=== PATIENT | female | born 1975 | race African-American/Black ===

== ENCOUNTER 2020-12-14 00:04 | Emergency (ER) | payer SELFPAY ==
--- OUTSIDE RECORDS SUMMARY | 2020-12-14 00:08 | XMS REPORT | Continuity of Care Document ---
:1975 Author Organization [facility] t Address [address] [place] [address] Care Team Providers Name Role Phone Unavailable Unavailable Unavailable Problems This patient has no known problems. Allergies, Adverse Reactions, Alerts This patient has no known allergies or adverse reactions. Medications This patient has no known medications. Procedures This patient has no known procedures. Results This patient has no known results.
[2020-12-14 00:53] LABS: Urine Blood 1+ (Negative); Urine Glucose Negative (Negative); Urine Protein 3+ (Negative); Urine Specific Gravity >=1.030 (1.005-1.030)
[2020-12-14 01:31] LABS: Absolute Lymphocytes (CBC) 1.2 K/uL (0.7-4.9); Basophils % 0.3 % (0-1.3); Hematocrit 36.4 % (36.0-45.0); Lymphocytes % 7.8 % (15.3-44.8); MPV 8.8 fL (7.6-11.3)
[2020-12-14] MEDS ORDERED: NA CHLORIDE 0.9% 1,000 ML ONE (01:54)
[2020-12-14] MEDS ORDERED: ONDANSETRON 4 MG/2 ML VIAL ONE (01:54)
[2020-12-14] MEDS ORDERED: FAMOTIDINE 20 MG/2 ML VIAL IV ONE (01:54)
[2020-12-14] MEDS ORDERED: MORPHINE 4 MG/ML SYR ONE (01:54)
[2020-12-14 02:22] LABS: ALT/SGPT 20 U/L (12-78); AST/SGOT 17 U/L (15-37); Albumin 3.9 g/dL (3.4-5.0); Alkaline Phosphatase 74 U/L (45-117); BUN Blood Urea Nitrogen 9 mg/dL (7-18); Bicarbonate 22 mmol/L (21-32); Bilirubin Direct 0.1 mg/dL (0-0.2); Bilirubin Total 0.4 mg/dL (0.2-1.0); Glucose Level 151 mg/dL (74-106); Lipase 19 U/L (73-393); Potassium 3.4 mmol/L (3.5-5.1); Protein, Total 8.5 g/dL (6.4-8.2); Sodium Level 137 mmol/L (136-145)
[2020-12-14 03:22] LABS: Urine Specific Gravity/Preg >1.030 (1.005-1.030)
[2020-12-14] MEDS ORDERED: PROMETHAZINE INJ 25 MG/ML AMP ONE (03:41)
[2020-12-14] MEDS ORDERED: D5 0.45 NS 1,000 ML IV ONE (03:54)
--- NOTE | 2020-12-14 04:33 | EDPHYS ---
Physician Documentation [facility] Name: Angel Ragsdale Age: 45 yrs Sex: Female : 1975 Arrival Date: 12/14/2020 Time: 00:15 Bed 13 Private MD: ED Physician Zackery Pagan HPI: 12/14 03:23 This 45 yrs old Black Female presents to ER via EMS with complaints of Vomiting. mh7 03:23 The patient presents to the emergency department with nausea, that is moderate, mh7 vomiting, that is intermittent, described as clear fluid, abdominal pain, of the epigastric area, described as intermittent, vague,\E\ waxing and waning, and does not radiate. 03:24 Onset: The symptoms/episode began/occurred yesterday. Possible causes: . The mh7 symptoms are aggravated by nothing. The symptoms are alleviated by nothing. Associated signs and symptoms: Pertinent negatives: anorexia, belching, constipation, diarrhea, dysuria, fever, flatulence, GI bleeding, hematuria, vaginal discharge. Severity of symptoms: At their worst the symptoms were moderate yesterday, in the emergency department the symptoms are unchanged. 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 - Social history:: Smoking status: unknown. ROS: 03:24 Constitutional: Negative for fever, chills, and weight loss, Eyes: Negative for injury, mh7 pain, redness, and discharge, ENT: Negative for injury, pain, and discharge, Neck: Negative for injury, pain, and swelling, Cardiovascular: Negative for chest pain, palpitations, and edema, Respiratory: Negative for shortness of breath, cough, wheezing, and pleuritic chest pain, Back: Negative for injury and pain, : Negative for injury, bleeding, discharge, and swelling, MS/Extremity: Negative for injury and deformity, Skin: Negative for injury, rash, and discoloration, Neuro: Negative for headache, weakness, numbness, tingling, and seizure, Psych: Negative for depression, anxiety, suicide ideation, homicidal ideation, and hallucinations, Allergy/Immunology: Negative for hives, rash, and allergies, Endocrine: Negative for neck swelling, polydipsia, polyuria, polyphagia, and marked weight changes, Hematologic/Lymphatic: Negative for swollen nodes, abnormal bleeding, and unusual bruising. Exam: 03:24 Constitutional: This is a well developed, well nourished patient who is awake, alert, mh7 and in no acute distress. Head/Face: Normocephalic, atraumatic. Eyes: Pupils equal round and reactive to light, extra-ocular motions intact. Lids and lashes normal. Conjunctiva and sclera are non-icteric and not injected. Cornea within normal limits. Periorbital areas with no swelling, redness, or edema. Neck: Trachea midline, no thyromegaly or masses palpated, and no cervical lymphadenopathy. Supple, full range of motion without nuchal rigidity, or vertebral point tenderness. No Meningismus. Chest/axilla: Normal chest wall appearance and motion. Nontender with no deformity. No lesions are appreciated. Cardiovascular: Regular rate and rhythm with a normal S1 and S2. No gallops, murmurs, or rubs. Normal PMI, no JVD. No pulse deficits. Respiratory: Lungs have equal breath sounds bilaterally, clear to auscultation and percussion. No rales, rhonchi or wheezes noted. No increased work of breathing, no retractions or nasal flaring. 03:24 Back: No spinal tenderness. No costovertebral tenderness. Full range of motion. Skin: Warm, dry with normal turgor. Normal color with no rashes, no lesions, and no evidence of cellulitis. MS/ Extremity: Pulses equal, no cyanosis. Neurovascular intact. Full, normal range of motion. Neuro: Awake and alert, GCS 15, oriented to person, place, time, and situation. Cranial nerves II-XII grossly intact. Motor strength 5/5 in all extremities. Sensory grossly intact. Cerebellar exam normal. Normal gait. Psych: Awake, alert, with orientation to person, place and time. Behavior, mood, and affect are within normal limits. 03:24 Abdomen/GI: Inspection: gravid appearance, is noted, Bowel sounds: normal, in all quadrants, Palpation: mild abdominal tenderness, in the epigastric area, mass, is not appreciated, rebound tenderness, is not appreciated, voluntary guarding, is not appreciated, involuntary guarding, is not appreciated, no appreciated organomegaly, Rectal exam: the exam is deferred, because of patient request, Indicators: McBurney's point is not tender, Pearce's sign is negative, Rovsing's sign is negative, Obturator sign is negative, Psoas sign is negative, Liver: no appreciated palpable abnormalities, Hernia: not appreciated. Vital Signs: 00:44 BP 158 / 92; Pulse 76; Resp 16 S; Temp 97.8(O); Pulse Ox 99% on R/A; Weight 45.36 kg bb (R); Height 5 ft. 7 in. (170.18 cm) (R); Pain 10/10; 02:00 BP 162 / 71; Pulse 76; Resp 18; Pulse Ox 98% on R/A; wh 04:00 BP 148 / 98; Pulse 75; Resp 18; Pulse Ox 99% on R/A; wh 00:44 Body Mass Index 15.66 (45.36 kg, 170.18 cm) bb MDM: 04:31 Differential diagnosis: Nonspecific abd pain, gastritis, pancreatitis, ectopic mh7 . Data reviewed: vital signs, nurses notes, lab test result(s), Beta HCG: CBC, electrolytes, urinalysis, radiologic studies, ultrasound. Data interpreted: Pulse oximetry: on room air is 99 %. Interpretation: normal. Counseling: I had a detailed discussion with the patient and/or guardian regarding: the historical points, exam findings, and any diagnostic results supporting the discharge/admit diagnosis, the presence of at least one elevated blood pressure reading (>120/80) during this emergency department visit, lab results, radiology results, the need for outpatient follow up, an OB/Gyne specialist, to return to the emergency department if symptoms worsen or persist or if there are any questions or concerns that arise at home. Response to treatment: the patient's symptoms have resolved after treatment, the patient's blood pressure is in an acceptable range, mental status has returned to baseline, the patient no longer shows bradycardia, the patient is not short of breath, the patient is not tachycardic, the patient's pain is gone, the patient's temperature has normalized. 04:33 Patient medically screened. [facility] 12/14 00:53 Order name: Urine Dipstick-Ancillary; Complete Time: 01:21 EDMS 12/14 01:08 Order name: Urine --Ancillary (enter results) ds4 12/14 01:09 Order name: Urine --Ancillary; Complete Time: 04:29 [facility] [place] 12/14 01:12 Order name: Basic Metabolic Panel; Complete Time: 03: 12/14 01:12 Order name: CBC with Diff; Complete Time: 03: 12/14 01:12 Order name: Hepatic Function; Complete Time: 03: 12/14 01:12 Order name: Lipase; Complete Time: 03: 12/14 01:22 Order name: HCG-Quantitative; Complete Time: 03:19 [facility] 12/14 01:22 Order name: Abo/rh Typing; Complete Time: 03: [facility] 12/14 02:59 Order name: Matter Eval Tm 1 [facility] [place] 12/14 03:11 Order name: ABO/RH no charge; Complete Time: 03:19 [facility] [place] 12/14 01:12 Order name: IV Saline Lock; Complete Time: 01:16 12/14 01:12 Order name: Labs collected and sent; Complete Time: 01:16 Administered Medications: 01:33 Drug: NS 0.9% 1000 ml Route: IV; Rate: 1000 ml; Site: left forearm; 03:23 Follow up: Response: No adverse reaction; IV Status: Completed infusion 01:35 Drug: morphine 4 mg {Note: RASS 0.} Route: IVP; Site: left forearm; 03:22 Follow up: Response: No adverse reaction; Pain is decreased; RASS: Alert and Calm (0) 01:37 Drug: Zofran (Ondansetron) 4 mg Route: IVP; Site: left forearm; wh 03:43 Follow up: Response: No adverse reaction; Nausea is decreased wh 01:39 Drug: Pepcid (famotidine) 20 mg Route: IVP; Site: left forearm; 03:22 Follow up: Response: No adverse reaction wh 03:22 Follow up: Response: No adverse reaction; Nausea is decreased wh 03:22 Drug: Phenergan (promethazine) 12.5 mg Route: IVP; Site: left forearm; wh 04:34 Follow up: Response: No adverse reaction; Nausea is decreased; Vomiting decreased ad5 04:50 Follow up: Response: No adverse reaction; Nausea is decreased wh 03:43 Drug: D5-1/2 NS 1000 ml Route: IV; Rate: bolus; Site: left forearm; 04:35 Follow up: IV Status: Completed infusion; IV Intake: 1000ml ad5 04:50 Follow up: Response: No adverse reaction; IV Status: Completed infusion Disposition: 12/14/20 04:33 Discharged to Home. Impression: Hyperemesis Gravidarum. - Condition is Stable. - Discharge Instructions: Hyperemesis Gravidarum, Eating Plan for Hyperemesis Gravidarum. - Prescriptions for Zofran ODT 4 mg Oral tablet,disintegrating - place 1 tablet by TRANSLINGUAL route every 8 hours As needed; 10 tablet. Pepcid 20 mg Oral Tablet - take 1 tablet by ORAL route every 12 hours for 5 days; 10 tablet. Phenergan 12.5 mg Rectal Suppository - insert 1 suppository by RECTAL route every 6 hours As needed; 12 suppository. - Medication Reconciliation Form, Thank You Letter, Antibiotic Education, Prescription Opioid Use form. - Follow up: Private Physician; When: 1 - 2 days; Reason: Worsening of condition, Recheck today's complaints, Continuance of care, Re-evaluation by your physician. Follow up: Jet Fischer MD; When: 1 - 2 days; Reason: Worsening of condition, Recheck today's complaints. - Problem is new. - Symptoms have improved. Signatures: Dispatcher [employer] EDAL Verito Bass RN RN Awa Youngblood RN RN Zackery Pagan MD MD [facility] Esa Estrada ad5 Corrections: (The following items were deleted from the chart) 02:59 01:23 Transvaginal Ob+US.RAD.BRZ ordered. EDAL EDMS 04:50 04:33 12/14/2020 04:33 Discharged to Home. Impression: Hyperemesis Gravidarum. Condition is Stable. Forms are Medication Reconciliation Form, Thank You Letter, Antibiotic Education, Prescription Opioid Use. Follow up: Private Physician; When: 1 - 2 days; Reason: Worsening of condition, Recheck today's complaints, Continuance of care, Re-evaluation by your physician. Follow up: Jet Fischer; When: 1 - 2 days; Reason: Worsening of condition, Recheck today's complaints. Problem is new. Symptoms have improved. mh7
--- NOTE | 2020-12-14 04:33 | ER ---
Nurse's Notes [facility] Name: Angel Ragsdale Age: 45 yrs Sex: Female : 1975 Arrival Date: 12/14/2020 Time: 00:15 Bed 13 Private MD: Diagnosis: Hyperemesis Gravidarum Presentation: 12/14 00:44 Chief complaint: Patient states: she has been vomiting since noon yesterday and has bb abdominal pain also she is . Coronavirus screen: At this time, the client does not indicate any symptoms associated with coronavirus-19. Ebola Screen: No symptoms or risks identified at this time. Initial Sepsis Screen: Does the patient meet any 2 criteria? No. Patient's initial sepsis screen is negative. Does the patient have a suspected source of infection? No. Patient's initial sepsis screen is negative. Risk Assessment: Do you want to hurt yourself or someone else? Patient reports no desire to harm self or others. Onset of symptoms was December 13, 2020. 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 - Social history:: Smoking status: unknown. Screenin:00 Abuse screen: Denies threats or abuse. Denies injuries from another. Nutritional wh screening: No deficits noted. Tuberculosis screening: No symptoms or risk factors identified. Fall Risk None identified. Assessment: 01:00 General: Appears in no apparent distress. Behavior is calm, cooperative. Pain: wh Complains of pain in epigastric area. Neuro: Level of Consciousness is awake, alert, obeys commands, Oriented to person, place, time, situation. Cardiovascular: Capillary refill < 3 seconds. Respiratory: Airway is patent Respiratory effort is even, unlabored, Respiratory pattern is regular, symmetrical. GI: Abdomen is flat, non-distended. GI: Reports nausea, vomiting. : No signs and/or symptoms were reported regarding the genitourinary system. EENT: No signs and/or symptoms were reported regarding the EENT system. Derm: Skin is intact, Skin is normal. Musculoskeletal: Circulation, motion, and sensation intact. 02:00 Reassessment: Patient appears in no apparent distress at this time. Patient and/or wh family updated on plan of care and expected duration. Pain level reassessed. Patient is alert, oriented x 3, equal unlabored respirations, skin warm/dry/pink. 03:00 Reassessment: Patient appears in no apparent distress at this time. Patient and/or wh family updated on plan of care and expected duration. Pain level reassessed. Patient is alert, oriented x 3, equal unlabored respirations, skin warm/dry/pink. 04:30 Reassessment: Patient appears in no apparent distress at this time. Patient and/or wh family updated on plan of care and expected duration. Pain level reassessed. Patient is alert, oriented x 3, equal unlabored respirations, skin warm/dry/pink. Patient states feeling better. Patient states symptoms have improved. Vital Signs: 00:44 BP 158 / 92; Pulse 76; Resp 16 S; Temp 97.8(O); Pulse Ox 99% on R/A; Weight 45.36 kg bb (R); Height 5 ft. 7 in. (170.18 cm) (R); Pain 10/10; 02:00 BP 162 / 71; Pulse 76; Resp 18; Pulse Ox 98% on R/A; wh 04:00 BP 148 / 98; Pulse 75; Resp 18; Pulse Ox 99% on R/A; wh 00:44 Body Mass Index 15.66 (45.36 kg, 170.18 cm) ED Course: 00:15 Patient arrived in ED. cf2 00:46 Zackery Pagan MD is Attending Physician. mh7 00:47 Triage completed. bb 00:47 Arm band placed on Patient placed in an exam room, on a stretcher, on pulse oximetry. bb 00:52 Awa Youngblood, ELIU is Primary Nurse. wh 01:00 Patient has correct armband on for positive identification. Bed in low position. Call light in reach. Side rails up X 1. Pulse ox on. NIBP on. 01:00 Inserted saline lock: 20 gauge in left forearm, using aseptic technique. Blood wh collected. 03:00 Matter Eval Tm 1 In Process Unspecified. EDMS 04:32 Jet Fischer MD is Referral Physician. [facility] 04:49 No provider procedures requiring assistance completed. IV discontinued, intact, bleeding controlled, No redness/swelling at site. Administered Medications: 01:33 Drug: NS 0.9% 1000 ml Route: IV; Rate: 1000 ml; Site: left forearm; 03:23 Follow up: Response: No adverse reaction; IV Status: Completed infusion wh 01:35 Drug: morphine 4 mg {Note: RASS 0.} Route: IVP; Site: left forearm; 03:22 Follow up: Response: No adverse reaction; Pain is decreased; RASS: Alert and Calm (0) 01:37 Drug: Zofran (Ondansetron) 4 mg Route: IVP; Site: left forearm; 03:43 Follow up: Response: No adverse reaction; Nausea is decreased wh 01:39 Drug: Pepcid (famotidine) 20 mg Route: IVP; Site: left forearm; 03:22 Follow up: Response: No adverse reaction wh 03:22 Follow up: Response: No adverse reaction; Nausea is decreased 03:22 Drug: Phenergan (promethazine) 12.5 mg Route: IVP; Site: left forearm; 04:34 Follow up: Response: No adverse reaction; Nausea is decreased; Vomiting decreased ad5 04:50 Follow up: Response: No adverse reaction; Nausea is decreased 03:43 Drug: D5-1/2 NS 1000 ml Route: IV; Rate: bolus; Site: left forearm; 04:35 Follow up: IV Status: Completed infusion; IV Intake: 1000ml ad5 04:50 Follow up: Response: No adverse reaction; IV Status: Completed infusion Intake: 04:35 IV: 1000ml; Total: 1000ml. ad5 Outcome: 04:33 Discharge ordered by . [facility] 04:49 Discharged to home ambulatory. 04:49 Condition: stable 04:49 Discharge instructions given to patient, Instructed on discharge instructions, follow up and referral plans. medication usage, POC Demonstrated understanding of instructions, follow-up care, medications, POC Prescriptions given X 3. 04:50 Patient left the ED. Signatures: [facility] Verito Bass RN RN Awa Youngblood RN RN Elsa Tabares 2 Zackery Pagan MD MD [facility] Esa Estrada ad5
[2020-12-14 05:00] VITALS: TEMP 97.8
[2020-12-14 05:03] VITALS: BP 148/98; O2SAT 99
--- NOTE | 2020-12-14 08:34 | RAD REPORT ---
EXAM DESCRIPTION: US - Matter Aideeal Tm 1 - 12/14/2020 3:01 am CLINICAL HISTORY: ABD PAIN Early . COMPARISON: No comparisons FINDINGS: A single gestational sac is seen within the uterus. The shape of the sac is within normal limits for gestational age. Within the sac is a single pole with crown-rump length of 5.7 cm, c orrelating to estimated gestational age of 12 weeks 1 day. Estimated date of delivery is 06/27/2021. Heart rate is 150 BPM. The placenta is not yet developed / visualized due to early gestational age. Small subchorionic bleed along the superior margin of the sac. The left ovary was obscured by bowel g as. The right ovary is normal with normal blood flow measuring 2.0 x 1.9 cm. IMPRESSION: Single live early intrauterine gestation with estimated gestational age of 12 weeks 1 da y, TATE 06/27/2021. Small superiorly located subchorionic bleed.
== END 2020-12-14 04:50 | disposition home or self-care (01) ==
LOC: ER 00:04
DX: O21.0 Mild hyperemesis gravidarum (principal); Z3A.16 16 weeks gestation of pregnancy; Z88.8 Allergy status to other drugs, medicaments and biological substances
CPT/HCPCS: 36415; 76801; 80048; 80076; 81003; 81025; 83690; 84702; 85025; 86900; 86901; 96361; 96365; 96375; 99284; J2405; J2550; J7030; J7799